=== PATIENT | female | born 1980 | race Caucasian/White ===

== ENCOUNTER 2022-08-05 09:48 | Emergency (ER) | payer OTHER ==
[~2022-08-05] VITALS: Ht 165.1 cm; Wt 90.9 kg
[~2022-08-05 09:48] MED LIST: ALBU8HFA IH; BACTDSB PO; DOCU-385 PO; FAMO20 PO; HYDR-4723 PO; HYDR25TA2 PO; SUMA25TA9 PO
[2022-08-05 11:16] VITALS: BP 155/98
[2022-08-05] MEDS ORDERED: CEPH-558 PO (12:12)
[2022-08-05] MEDS ORDERED: DOXY-354 PO (12:12)
== END 2022-08-05 12:34 | disposition home or self-care (01) ==
LOC: EMS 09:50
DX: L03.211 Cellulitis of face (principal); M79.7 Fibromyalgia; M12.9 Arthropathy, unspecified; Z98.890 Other specified postprocedural states
CPT/HCPCS: 99283; Z7502